=== PATIENT | male | born 1945 | race Asian ===

== ENCOUNTER → 2024-05-30 | Outpatient (CLI) | payer MEDICARE, SELFPAY ==
[2024-05-30 09:54] LABS: Collection Type, Urine Clean Catch; Squamous Epithelial Cell,Urine 0 /hpf (0-5)
[2024-05-30 10:43] LABS: Basophils % (Auto) 0 % (0-2.5); Eosinophils # (Auto) 0.2 Thou/mm3 (0.0-0.5); Eosinophils % (Auto) 3 % (0-10); Hematocrit 42.3 % (41.0-53.0); Hemoglobin 13.2 g/dL (13.5-16.0); Immature Granulocytes % (Auto) 0 % (0-0); Immature Granulocytes Auto 0.02 Thou/mm3 (0.00-0.00); Lymphocytes # (Auto) 1.7 Thou/mm3 (1.0-4.8); Lymphocytes % (Auto) 30 % (10-50); Mean Corpuscular HGB Conc 31.2 g/dl (31.0-37.0); Mean Corpuscular Volume 64 fL (80-100); Monocytes # (Auto) 0.8 Thou/mm3 (0.0-0.8); Monocytes % (Auto) 13 % (0-12); Neutrophils # (Auto) 3.1 Thou/mm3 (1.8-7.7); Neutrophils % (Auto) 54 % (37-80); Nucleated Red Blood Cell % 0 /100 WBC (0); Platelet Count 154 Thou/mm3 (140-440); Red Blood Count 6.59 Miln/mm3 (4.50-5.90); White Blood Count 5.8 Thou/mm3 (3.8-10.6)
[2024-05-30 10:49] LABS: Glucose Estimated Average 174 mg/dL (80-131); Hemoglobin A1C 7.7 % Hgb (4.8-6.0)
[2024-05-30 11:01] LABS: Alanine Aminotransferase 21 U/L (10-49); Albumin/Globulin Ratio 1.4 (1.2-2.2); Alkaline Phosphatase 50 U/L (46-116); Anion Gap 10 (7-16); Aspartate Amino Transferase 23 U/L (0-34); BUN/Creatinine Ratio 19 Ratio (12-20); Bilirubin,Total 0.9 mg/dL (0.3-1.2); Blood Urea Nitrogen 19 mg/dL (9-23); Calcium 9.2 mg/dL (8.3-10.6); Calcium (Corrected) 9.2 mg/dL (8.5-10.1); Cardiac Risk Estimate 3.3 RATIO (4.0-6.7); Chloride 106 mMol/L (98-107); Cholesterol 166 mg/dL (132-200); Globulin 2.8 gm/dL (2.3-3.5); Glucose 152 mg/dL (74-106); HDL Cholesterol 50 mg/dL (40-60); LDL Cholesterol,Calculated 97 mg/dL (0-130); Osmolality,Calculated 286 (275-295); Sodium 141 mMol/L (136-145); Total Protein 6.8 gm/dL (5.7-8.2); Triglycerides 96 mg/dL (30-150); eGFR > 60 See Note
[2024-05-30 11:04] LABS: Creatinine MALB Rnd Ur 154 mg/dL (30-125); Microalbumin Creat Ratio 154 mg/gCrea (<30); Microalbumin, Random Urine 237 mg/L (0-300)
[2024-05-30 14:14] LABS: Bilirubin,Urine Negative (Negative); Blood,Urine Negative (Negative); Clarity,Urine Clear (Clear/Hazy); Color,Urine Yellow (Lt Yel-Yel); Glucose, Urine Negative (Negative); Ketones,Urine Negative (Negative); Leukocyte Esterase,Urine Negative (Negative); Nitrite,Urine Negative (Negative); Protein,Urine 1+ (Neg - Trace); RBC,Urine 1 /hpf (0-3); Urobilinogen,Urine Negative mg/dL (0.0-1.0); WBC,Urine < 1 /hpf (0-5)
== END | disposition home or self-care (01) ==
PROVIDERS: PCP Family Medicine; Referring Provider Family Medicine; Visit Provider Family Medicine
DX: Z00.00 Encounter for general adult medical examination without abnormal findings (principal); E11.59 Type 2 diabetes mellitus with other circulatory complications; E78.2 Mixed hyperlipidemia; I10 Essential (primary) hypertension
CPT/HCPCS: 36415; 80053; 80061; 81001; 82043; 82570; 83036; 84443; 85025

== ENCOUNTER → 2024-08-21 | Outpatient (CLI) | payer MEDICARE, SELFPAY ==
[2024-08-21 09:34] LABS: Alanine Aminotransferase 21 U/L (10-49); Albumin, Serum 4.3 gm/dL (3.4-4.8); Albumin/Globulin Ratio 1.6 (1.2-2.2); Alkaline Phosphatase 46 U/L (46-116); Anion Gap 9 (7-16); Aspartate Amino Transferase 20 U/L (0-34); BUN/Creatinine Ratio 15 Ratio (12-20); Bilirubin,Total 0.6 mg/dL (0.3-1.2); Blood Urea Nitrogen 17 mg/dL (9-23); Calcium 8.4 mg/dL (8.3-10.6); Calcium (Corrected) 8.4 mg/dL (8.5-10.1); Carbon Dioxide 26.4 mMol/L (20.0-31.0); Cardiac Risk Estimate 2.4 RATIO (4.0-6.7); Chloride 109 mMol/L (98-107); Cholesterol 127 mg/dL (132-200); Creatinine (Component) 1.1 mg/dL (0.6-1.3); Globulin 2.7 gm/dL (2.3-3.5); Glucose 142 mg/dL (74-106); HDL Cholesterol 52 mg/dL (40-60); LDL Cholesterol,Calculated 57 mg/dL (0-130); Osmolality,Calculated 290 (275-295); Potassium 4.2 mMol/L (3.4-5.1); Sodium 144 mMol/L (136-145); Triglycerides 89 mg/dL (30-150); eGFR > 60 See Note
[2024-08-21 09:52] LABS: Glucose Estimated Average 160 mg/dL (80-131); Hemoglobin A1C 7.2 % Hgb (4.8-6.0)
== END | disposition home or self-care (01) ==
PROVIDERS: PCP Family Medicine; Referring Provider Family Medicine; Visit Provider Family Medicine
DX: E78.2 Mixed hyperlipidemia (principal); E11.59 Type 2 diabetes mellitus with other circulatory complications; I48.21 Permanent atrial fibrillation; I10 Essential (primary) hypertension
CPT/HCPCS: 36415; 80053; 80061; 83036

== ENCOUNTER → 2024-11-23 | Outpatient (CLI) | payer MEDICARE, MEDICAID, SELFPAY ==
[2024-11-23 09:53] LABS: Basophils # (Auto) 0.0 Thou/mm3 (0.0-0.2); Basophils % (Auto) 0 % (0-2.5); Eosinophils # (Auto) 0.2 Thou/mm3 (0.0-0.5); Eosinophils % (Auto) 3 % (0-10); Hematocrit 38.9 % (41.0-53.0); Hemoglobin 12.0 g/dL (13.5-16.0); Immature Granulocytes Auto 0.02 Thou/mm3 (0.00-0.00); Lymphocytes # (Auto) 1.3 Thou/mm3 (1.0-4.8); Lymphocytes % (Auto) 23 % (10-50); Mean Corpuscular HGB Conc 30.8 g/dl (31.0-37.0); Mean Corpuscular Hemoglobin 20.8 pg (25.0-35.0); Mean Corpuscular Volume 67 fL (80-100); Monocytes # (Auto) 0.6 Thou/mm3 (0.0-0.8); Monocytes % (Auto) 11 % (0-12); Neutrophils # (Auto) 3.6 Thou/mm3 (1.8-7.7); Neutrophils % (Auto) 63 % (37-80); Nucleated Red Blood Cell # 0.00 Thou/mm3 (0.00-0.00); Nucleated Red Blood Cell % 0 /100 WBC (0); Platelet Count 126 Thou/mm3 (140-440); RDW Standard Deviation 41.5 fL (35.1-43.9); Red Blood Count 5.77 Miln/mm3 (4.50-5.90); White Blood Count 5.7 Thou/mm3 (3.8-10.6)
[2024-11-23 15:03] LABS: Glucose Estimated Average 148 mg/dL (80-131); Hemoglobin A1C 6.8 % Hgb (4.8-6.0)
== END | disposition home or self-care (01) ==
PROVIDERS: PCP Family Medicine; Referring Provider Family Medicine; Visit Provider Family Medicine
DX: D64.9 Anemia, unspecified (principal); E11.59 Type 2 diabetes mellitus with other circulatory complications
CPT/HCPCS: 36415; 83036; 85025

== ENCOUNTER 2024-11-24 09:28 | Emergency (ER) | payer OTHER, MEDICAID, SELFPAY ==
[2024-11-24 09:29] VITALS: BMI 25.8
[2024-11-24 09:38] VITALS: BP 172/83; PULSE 50; RESP 16; TEMP 36.6; O2SAT 97
--- NOTE | 2024-11-24 09:50 | XR_ITS ---
Examination: CT abdomen and pelvis without contrast. Coronal 3-D reconstructions. Sagittal 2-D reconstructions. Date and time of exam:November 24, 2024 1013 hours INDICATIONS: Right flank pain beginning 2 weeks ago CTDI: vol (mGy): 7.28 DLP: (mGycm): 401 Technique: Axial images of the abdomen have been obtained, 3 mm slice thickness Intravenous contrast material has not been administered. Low dose protocols were performed. One or more of the following dose reduction techniques were used; automated exposure control, adjustment of the mA and/or KV according to patient size, use of iterative reconstruction technique. Findings: Liver is irregular in contour no focal liver lesions No gallstones Spleen is not enlarged No pancreatic or adrenal mass Minimal perinephric stranding No renal or ureteral calculi, no hydronephrosis Normal appendix No bowel obstruction Colonic diverticulosis, no diverticulitis Normal seminal vesicles AP prostate dimension 4.5 cm Contracted urinary bladder Intact osseous structures IMPRESSION: Suspect primary hepatocellular disease Minimal perinephric stranding No renal or ureteral calculi, no hydronephrosis Normal appendix Extensive colonic diverticulosis Contracted urinary bladder
--- NOTE | 2024-11-24 09:50 | EKG_ITS ---
[facility] Test Date: 2024-11-24 Pat Name: RICK GORMAN Department: Room: - Gender: Male Adjunct Faculty Mathematics Department: : 1945 Requested By: Francesco Fernandes Order Number: [id number] Reading MD: Francesco Fernandes Measurements Intervals [place] Rate: 40 P: 48 MI: 176 QRS: -7 QRSD: 86 T: 31 QT: 443 QTc: 364 Interpretive Statements SINUS BRADYCARDIA CRITICAL TEST RESULT No previous ECG available for comparison /store/S0/[id number]/ecg/[id number].pdf
--- NOTE | 2024-11-24 09:52 | PD.EDRME ---
Rapid Medical Screening Exam [facility] Arrival date/time: 11/24/24 09:28 CC: Right flank pain that radiates to the right groin HPI onset 2 weeks ago intermittent in nature, progressively worsening. Also now pain radiating up into the right shoulder and right chest. Denies painful urination bloody urination nausea vomiting or diarrhea. No OTC medicines taken. Chief Complaint: Back Pain/Injury Time Seen by Provider: 11/24/24 09:48 Vital signs: Vital Signs Temperature 97.9 F 11/24/24 09:38 Pulse Rate 50 L 11/24/24 09:38 Respiratory Rate 16 11/24/24 09:38 Blood Pressure 172/83 H 11/24/24 09:38 Pulse Oximetry (%) 97 11/24/24 09:38 Oxygen Delivery Method Room Air 11/24/24 09:38
[2024-11-24] MEDS: KETOROLAC INJ 60 MG/2 ML VIAL 15 MG IM (10:19)
[2024-11-24 10:53] LABS: Basophils # (Auto) 0.0 Thou/mm3 (0.0-0.2); Basophils % (Auto) 0 % (0-2.5); Eosinophils # (Auto) 0.2 Thou/mm3 (0.0-0.5); Eosinophils % (Auto) 3 % (0-10); Hematocrit 38.6 % (41.0-53.0); Hemoglobin 11.9 g/dL (13.5-16.0); Immature Granulocytes Auto 0.01 Thou/mm3 (0.00-0.00); Lymphocytes # (Auto) 1.2 Thou/mm3 (1.0-4.8); Lymphocytes % (Auto) 25 % (10-50); Mean Corpuscular HGB Conc 30.8 g/dl (31.0-37.0); Mean Corpuscular Hemoglobin 20.5 pg (25.0-35.0); Mean Corpuscular Volume 66 fL (80-100); Monocytes # (Auto) 0.6 Thou/mm3 (0.0-0.8); Monocytes % (Auto) 12 % (0-12); Neutrophils # (Auto) 2.9 Thou/mm3 (1.8-7.7); Neutrophils % (Auto) 60 % (37-80); Nucleated Red Blood Cell # 0.00 Thou/mm3 (0.00-0.00); Nucleated Red Blood Cell % 0 /100 WBC (0); Platelet Count 116 Thou/mm3 (140-440); RDW Standard Deviation 41.1 fL (35.1-43.9); Red Blood Count 5.81 Miln/mm3 (4.50-5.90); White Blood Count 5.0 Thou/mm3 (3.8-10.6)
[2024-11-24 10:56] LABS: Collection Type, Urine Clean Catch
[2024-11-24 11:03] LABS: Bilirubin,Urine Negative (Negative); Blood,Urine Negative (Negative); Clarity,Urine Clear (Clear/Hazy); Color,Urine Yellow (Lt Yel-Yel); Culture Indicated,Urine Not Indicated; Glucose, Urine Negative (Negative); Hyaline Casts,Urine < 1 /hpf (0-1); Ketones,Urine Negative (Negative); Leukocyte Esterase,Urine Negative (Negative); Nitrite,Urine Negative (Negative); PH,Urine 6.0 (5.0-7.0); Protein,Urine 2+ (Neg - Trace); RBC,Urine 3 /hpf (0-3); Specific Gravity,Urine 1.038 (1.001-1.035); Squamous Epithelial Cell,Urine < 1 /hpf (0-5); Urobilinogen,Urine Negative mg/dL (0.0-1.0); WBC,Urine 2 /hpf (0-5)
[2024-11-24 11:08] LABS: Alanine Aminotransferase 13 U/L (10-49); Albumin, Serum 4.3 gm/dL (3.4-4.8); Albumin/Globulin Ratio 1.7 (1.2-2.2); Alkaline Phosphatase 50 U/L (46-116); Anion Gap 9 (7-16); Aspartate Amino Transferase 23 U/L (0-34); BUN/Creatinine Ratio 15 Ratio (12-20); Bilirubin,Total 0.5 mg/dL (0.3-1.2); Blood Urea Nitrogen 15 mg/dL (9-23); Calcium 9.9 mg/dL (8.3-10.6); Calcium (Corrected) 9.9 mg/dL (8.5-10.1); Carbon Dioxide 24.4 mMol/L (20.0-31.0); Chloride 107 mMol/L (98-107); Creatinine (Component) 1.0 mg/dL (0.6-1.3); Estimated Creatinine Clearance 52.3 mL/min (>60); Globulin 2.6 gm/dL (2.3-3.5); Glucose 114 mg/dL (74-106); Lipase 27 U/L (12-53); Osmolality,Calculated 281 (275-295); Potassium 4.2 mMol/L (3.4-5.1); Sodium 140 mMol/L (136-145); Total Protein 6.9 gm/dL (5.7-8.2); Troponin I < 0.020 ng/mL (0.0-0.045); eGFR > 60 See Note
--- NOTE | 2024-11-24 11:15 | PC.NURSE ---
Patient [facility] and taken to room 16 with c/o RLQ pain 5/10 at this time, patient also c/o nausea and dizziness with a HR of 44 on the CM, patient denies blood in urine and stool, skin is warm dry and piink. Son at bedside, call light within reach, will await further orders.
[2024-11-24 11:33] VITALS: PULSE 44
[2024-11-24 11:35] LABS: Path Review Blood Smear Sent to Pathologist
[2024-11-24 12:01] VITALS: BP 158/84; PULSE 42; RESP 20; O2SAT 98
--- NOTE | 2024-11-24 12:11 | PD.EDADULT ---
ED General RME/HPI General Chief complaint: Back Pain/Injury Stated complaint: RIGHT LOWER BACK PAIN RADIATING TO ABD Time Seen by Provider: 11/24/24 09:48 Arrival date/time: 11/24/24 09:28 RME / HPI RME / HPI narrative: 11/24/24 09:28 CC: Right flank pain that radiates to the right groin HPI onset 2 weeks ago intermittent in nature, progressively worsening. Also now pain radiating up into the right shoulder and right chest. Denies painful urination bloody urination nausea vomiting or diarrhea. No OTC medicines taken. 79-year-old male with past medical history of diabetes, hyperlipidemia, BPH, and possible CHF and on Eliquis (not sure why he takes Eliquis) came into the ED due to right groin pain along with right lower back pain that radiated to his right shoulder. Otherwise patient does not have any chest pain, nausea, vomiting, shortness of breath, changes in bowel movement, or changes in urination. Denies any smoking, drugs, alcohol Related Data Home Medications ?Medication ?Instructions ?Recorded ?Confirmed apixaban 5 mg tablet (Eliquis) 5 mg PO 2XD 06/13/23 11/24/24 carvedilol 3.125 mg tablet 3.125 mg PO 2XD 06/13/23 11/24/24 sitagliptin phosphate 100 mg 100 mg PO 1XD 06/13/23 11/24/24 tablet (Januvia) valsartan 80 mg tablet 80 mg PO 1XD 06/13/23 11/24/24 rosuvastatin 20 mg tablet 20 mg PO QDAY 11/24/24 11/24/24 tamsulosin 0.4 mg capsule 0.4 mg PO .qd 11/24/24 11/24/24 Allergies Allergy/AdvReac Type Severity Reaction Status Date / Time No Known Allergies Allergy Verified 11/24/24 09:29 Review of Systems Review of Systems Systems Reviewed: All systems reviewed, normal except as documented Past Medical History Past Medical History Comments PMH COMMENT: Social: Denies any drugs, alcohol, smoking PMH: BPH, diabetes, hyperlipidemia, possible CHF, and on Eliquis (does not know why) ED Exam Narrative Physical exam: Gen: A&O X 3, NAD HEENT: NCAT, EOMI, Pupils reactive KIERA, not icteric. External ears normal. No rhinorrhea. Moist mucous membranes. Neck: Supple, full range of motion, no observable masses, No meningeal sign. Lungs: No Respiratory distress, clear bilateral. CV: RRR, no murmurs. Abdomen: Soft, nondistended, No rebound tenderness. MSK: No joint swelling, no redness, peripheral pulses presents, lumbar with no edema. Skin: No rashes, petechiae, lesions.. Neuro: No focal neurological deficits appreciated, sensory and motor intact. Psych: Cooperative, appropriate mood and effect. Course Quality Measures none Orders Category Date Time Status Form Maker Plaster Q4H START 00 Care 11/24/24 11:32 Completed EKG (ED ONLY) *Do not use* NOW Care 11/24/24 09:[address] abdomen pelvis wo con Stat Exams 11/24/24 09:50 Completed EKG (ED Only) Stat Exams 11/24/24 09:50 Draft CBC Stat Lab 11/24/24 10:31 Completed CMP [Comprehensive Metabolic Panel] Stat Lab 11/24/24 10:31 Completed Lipase Stat Lab 11/24/24 10:31 Completed Path Review Blood Smear Stat Lab 11/24/24 10:31 Completed Troponin I Stat Lab 11/24/24 10:31 Completed Urinalysis, C/S if Indicated Stat Lab 11/24/24 10:49 Completed Ketorolac Inj [Toradol Inj] Med 11/24/24 09:51 Discontinued 15 mg IM X1 ONE Vital Signs Vital signs: Vital Signs Temperature 97.9 F 11/24/24 09:38 Pulse Rate 50 L 11/24/24 09:38 Respiratory Rate 16 11/24/24 09:38 Blood Pressure 172/83 H 11/24/24 09:38 Pulse Oximetry (%) 97 11/24/24 09:38 Oxygen Delivery Method Room Air 11/24/24 09:38 Discharge Plan Plan Patient Disposition: HOME (Self Care) Prescriptions/Referrals Prescriptions/Med Rec: No Action tamsulosin 0.4 mg capsule 0.4 mg PO .qd rosuvastatin 20 mg tablet 20 mg PO QDAY Patient Comments: TAKE 1 TAB BY ORAL ROUTE ONCE NIGHTLY FOR HIGH CHOLESTEROL valsartan 80 mg tablet 80 mg PO 1XD Patient Comments: TAKE 1 TABLET (80 MG) BY ORAL ROUTE ONCE DAILY FOR HIGH BLOOD PRESSURE carvedilol 3.125 mg tablet 3.125 mg PO 2XD Patient Comments: TAKE 1 TABLET BY MOUTH TWICE A DAY WITH FOOD FOR HIGH BLOOD PRESSURE AND A FIB Januvia 100 mg tablet 100 mg PO 1XD Patient Comments: TAKE 1 TABLET BY MOUTH EVERY DAY Eliquis 5 mg tablet 5 mg PO 2XD Patient Comments: TAKE 1 TABLET BY MOUTH TWICE A DAY Referrals: Artie Correa MD [Primary Care Provider] - In 1 week Problem List Clinical Impression: Rt groin pain, Lumbar back pain Patient/Caregiver Discharge Instructions Other Activity Instructions:: Follow-up primary care physician within 2 days If you develop worsening groin area pain or bulge follow your primary care physician for possible evaluation for possible hernia. Can take Tylenol every 6 hours as needed for pain for the next 2 to 3 days. Would recommend using [id number] lidocaine patches apply them to your lower back for pain relief. Come back to the ER if you develop worsening abdominal pain, nausea, vomiting, fevers, or enlarging bulge in the groin area. Education Materials: ED Back Pain (Acute or Chronic), ED Pain, Acute, Uncertain Cause Print Language: Urdu Stand Alone Forms: [employer] Award Info., Patient Portal Info Letter MDM Narrative MDM hospital course: Patient was seen and evaluated upon arrival by myself. Diagnostic labs and imaging were ordered. Abdomen/pelvis CT showed mild perinephric stranding, no renal calculi, and diverticulosis. Otherwise all her labs were fairly unremarkable including UA. At this time patient is stable enough to be discharged home. Will recommend to follow-up outpatient with his primary care physician. Tylenol for pain as needed every 6 hours for the next 2 or 3 days and lidocaine patches. Patient agrees with plan. Prior to patient leaving his heart rate was in the 40s and patient is taking carvedilol. Asked the patient to be cautious given that his heart rate was on the lower end. I then reached out to the patient via phone call and spoke with patient's son, James, and instructed patient not to take his carvedilol until he sees his primary care physician due to a low heart rate. Case disclosed with Attending Dr. Emir Espinoza PGY2 Disclaimer: Even though this this note was dictated by speech recognition and even though it was carefully revised there may still be minor errors in drive in theater attendant due to voice recognition software. Medication Administration(s) Medication Administration History Discontinued Medications Ketorolac Tromethamine (Ketorolac Inj 60 Mg/2 Ml Vial) 15 mg IM X1 ONE Stop: 11/24/24 09:52 Last Admin: 11/24/24 10:19 Dose: 15 mg Documented By: PROMISE
[2024-11-24 12:58] VITALS: BP 174/89; PULSE 42; RESP 16; O2SAT 97
== END 2024-11-24 12:58 | disposition home or self-care (01) ==
PROVIDERS: Registered Nurse General Practice; Emergency Provider Family Medicine; PCP Family Medicine
DX: R10.31 Right lower quadrant pain (principal); M54.50 Low back pain, unspecified; E11.9 Type 2 diabetes mellitus without complications; N40.0 Benign prostatic hyperplasia without lower urinary tract symptoms; E78.5 Hyperlipidemia, unspecified; Z79.01 Long term (current) use of anticoagulants; Z79.899 Other long term (current) drug therapy
CPT/HCPCS: 36415; 74176; 80053; 81001; 83690; 84484; 85025; 93005; 96372; 99283; J1885

== ENCOUNTER 2025-02-07 19:32 | Emergency (ER) | payer OTHER, MEDICAID, SELFPAY ==
[2025-02-07 19:34] VITALS: BMI 26.6
[2025-02-07 20:30] VITALS: BP 178/93; PULSE 68; RESP 20; TEMP 36.6; O2SAT 97
--- NOTE | 2025-02-07 20:42 | PD.EDALLER ---
ED Allergic Reaction RME/HPI General Chief complaint: Skin/Abscess/Foreign Body Stated complaint: ITCHING ALL OVER Time Seen by Provider: 02/07/25 20:33 Arrival date/time: 02/07/25 19:32 80M with history of HTN and DM presents to ED with 2 days of generalized itchy rash. Patient denies new meds, foods, and hygiene products. Limitations: no limitations Related Data Home Medications ?Medication ?Instructions ?Recorded ?Confirmed apixaban 5 mg tablet (Eliquis) 5 mg PO 2XD 06/13/23 11/24/24 carvedilol 3.125 mg tablet 3.125 mg PO 2XD 06/13/23 11/24/24 sitagliptin phosphate 100 mg 100 mg PO 1XD 06/13/23 11/24/24 tablet (Januvia) valsartan 80 mg tablet 80 mg PO 1XD 06/13/23 11/24/24 rosuvastatin 20 mg tablet 20 mg PO QDAY 11/24/24 11/24/24 tamsulosin 0.4 mg capsule 0.4 mg PO .qd 11/24/24 11/24/24 Previous Rx's ?Medication ?Instructions ?Recorded prednisone 50 mg tablet 50 mg PO QDAY 5 days #5 tabs 02/07/25 Allergies Allergy/AdvReac Type Severity Reaction Status Date / Time No Known Allergies Allergy Verified 02/07/25 19:33 Review of Systems Review of Systems Systems Reviewed: All systems reviewed, normal except as documented Integumentary/Breasts Skin/Breast: Reports as per HPI, Reports pruritus and Reports rash Past Medical History Past Medical History CARDIAC: Positive Hypercholesterolemia and Hypertension; Negative Cardiac Disorders or Congestive Heart Failure RESPIRATORY: Negative Chronic Obstructive Pulmonary Disease (COPD) or Asthma GENITOURINARY: Negative Renal Disease ENDOCRINE: Positive Diabetes Mellitus Type 2; Negative Diabetes Mellitus Type 1 HEMATOLOGIC: Negative Sickle Cell Disease Social History SMOKING STATUS: Never smoker ED Exam General Limitations: Present no limitations General appearance: Present alert and in no apparent distress Head Head exam: Present atraumatic Neck Neck exam: Present normal inspection, full ROM and trachea midline Chest Chest inspection: Present normal inspection and symmetric chest wall rise Neurological Exam Neurological exam: Present alert and oriented X3 Psychiatric Psychiatric exam: Present normal affect and normal mood Skin Skin exam: Present warm, dry, intact, normal color and rash Course Quality Measures none Orders Category Date Time Status Dexamethasone Inj [Decadron Inj] Med 02/07/25 20:35 Discontinued 10 mg PO X1 ONE DiphenhydrAMINE [Benadryl] Med 02/07/25 20:35 Discontinued 25 mg PO X1 ONE Famotidine [Pepcid] Med 02/07/25 20:35 Discontinued 20 mg PO X1 ONE predniSONE Med 02/07/25 20:35 Discontinued 20 mg PO X1 ONE Vital Signs Vital signs: Vital Signs Temperature 97.9 F 02/07/25 20:30 Pulse Rate 68 02/07/25 20:30 Respiratory Rate 20 02/07/25 20:30 Blood Pressure 178/93 H 02/07/25 20:30 Pulse Oximetry (%) 97 02/07/25 20:30 Oxygen Delivery Method Room Air 02/07/25 20:30 O2 at 97% on RA and WNLs Allergic Reaction MDM Narrative MDM Narrative:: 80M with history of HTN and DM presents to ED with 2 days of generalized itchy rash. Patient denies new meds, foods, and hygiene products. Physical exam reveals generalized urticarial rash. Speech normal. Normal WOB. Patient is afebrile, calm, and alert. Meds improved symptoms. Patient left prior to receiving paperwork. Patient data External records reviewed:: [facility] previous records Clinical information provided by:: patient Social determinants that could affect healthcare access:: none Patient has the following chronic illnesses:: DM and HTN How is presenting disease/condition affected by chronic disease/condition?: uneffected by Evaluation data The following diagnostics were reviewed and interpreted by me:: other (specify) (none) Lab and/or radiology exams considered but not ordered:: not ordered Interpretation Summary: n/a Medications / Prescriptions Medications or Prescriptions considered but not ordered:: ordered Medication administrations:: Medication Administration History Discontinued Medications Dexamethasone Sodium Phosphate (Dexamethasone Sod Phos Inj 10 Mg/Ml Vial) 10 mg PO X1 ONE Stop: 02/07/25 20:36 Last Admin: 02/07/25 21:58 Dose: 10 mg Documented By: NEDA Comments: po Diphenhydramine HCl (Diphenhydramine 25 Mg Capsule) 25 mg PO X1 ONE Stop: 02/07/25 20:36 Last Admin: 02/07/25 21:58 Dose: 25 mg Documented By: NEDA Famotidine (Famotidine 20 Mg Tablet) 20 mg PO X1 ONE Stop: 02/07/25 20:36 Last Admin: 02/07/25 21:59 Dose: 20 mg Documented By: NEDA Prednisone (Prednisone 20 Mg Tablet) 20 mg PO X1 ONE Stop: 02/07/25 20:36 Last Admin: 02/07/25 21:58 Dose: 20 mg Documented By: NEDA above Consultations Consultation(s) initiated? (list below): No Diagnosis Differential Diagnosis allergic reaction: anaphylaxis, allergic reaction, angioedema, contact dermatitis, adverse reaction to drug, viral enanthem and urticaria Most likely diagnosis given after review of the tests above:: urticaria Admission Indicated Admission indicated?: not indicated Admission Request Was there a request for admission?: No Disposition Plan Disposition Plan: other (specify) (left prior to receiving paperwork) Discharge Plan Plan Patient Disposition: HOME (Self Care) Discharge Disposition comment: Stable Prescriptions/Referrals Prescriptions/Med Rec: New prednisone 50 mg tablet 50 mg PO QDAY 5 Days Qty: 5 0RF No Action tamsulosin 0.4 mg capsule 0.4 mg PO .qd rosuvastatin 20 mg tablet 20 mg PO QDAY Patient Comments: TAKE 1 TAB BY ORAL ROUTE ONCE NIGHTLY FOR HIGH CHOLESTEROL valsartan 80 mg tablet 80 mg PO 1XD Patient Comments: TAKE 1 TABLET (80 MG) BY ORAL ROUTE ONCE DAILY FOR HIGH BLOOD PRESSURE carvedilol 3.125 mg tablet 3.125 mg PO 2XD Patient Comments: TAKE 1 TABLET BY MOUTH TWICE A DAY WITH FOOD FOR HIGH BLOOD PRESSURE AND A FIB Januvia 100 mg tablet 100 mg PO 1XD Patient Comments: TAKE 1 TABLET BY MOUTH EVERY DAY Eliquis 5 mg tablet 5 mg PO 2XD Patient Comments: TAKE 1 TABLET BY MOUTH TWICE A DAY Problem List Clinical Impression: Urticaria Patient/Caregiver Discharge Instructions Education Materials: ED Hives (Adult) Additional Instructions: Please follow-up with PCP within 24-48 hours and return immediately if symptoms worsen. Take OTC antihistamine as needed until symptoms resolve. Finish entire steroid course. Watch sugars while taking steroids as it can increase levels. Print Language: Mongolian Stand Alone Forms: Patient Portal Info Letter MK/NASIM Supervising Physician MK/NASIM Supervising Physician: Dr. Diaz
[2025-02-07] MEDS: DEXAMETHASONE SOD PHOS INJ 10 MG/ML VIAL PO (21:58)
[2025-02-07] MEDS: FAMOTIDINE 20 MG TABLET PO (21:59)
== END 2025-02-08 00:44 | disposition home or self-care (01) ==
LOC: SERX 23:36
PROVIDERS: Emergency Provider Emergency Medicine
DX: L50.9 Urticaria, unspecified (principal); E11.9 Type 2 diabetes mellitus without complications; I10 Essential (primary) hypertension
CPT/HCPCS: 99281; J1100; J7512; A9270